=== PATIENT | female | born 1985 | race Asian ===

== ENCOUNTER 2021-05-27 15:53 | Emergency (ER) | payer OTHER ==
[2021-05-27 16:14] VITALS: BMI 28.5
[2021-05-27] MEDS ORDERED: CASIRIVIMAB/IMDEVIMAB 10 ML in SODIUM CHLORIDE 100 ML IVPB ONE (16:46)
[2021-05-27 18:54] VITALS: BP 127/86; PULSE 90
[2021-05-27 18:55] VITALS: TEMP 99.7
== END 2021-05-27 19:07 | disposition home or self-care (01) ==
LOC: JER 15:53
DX: U07.1 COVID-19 (principal)
CPT/HCPCS: 99284-25; Q0240

== ENCOUNTER 2023-08-26 04:14 | Day surgery (SDC) | payer BC ==
[2023-08-25 09:32] VITALS: BMI 30.2
[2023-08-26] MEDS ORDERED: ACETAMINOPHEN 325 MG TABLET (FP) PO PRN (11:44)
[2023-08-26] MEDS ORDERED: ONDANSETRON 4 MG/2 ML VIAL IVPUSH PRN ×2 (11:44→17:44)
[2023-08-26] MEDS ORDERED: oxyCODONE HCL 5 MG TABLET PO PRN ×2 (11:44→11:53)
[2023-08-26] MEDS ORDERED: LACTATED RINGERS SOLUTION 1,000 ML IV SCH (11:45)
[2023-08-26] MEDS ORDERED: IBUPROFEN 600 MG TABLET (FP) PO PRN (11:53)
[2023-08-26] MEDS ORDERED: IBUPROFEN 800 MG/8 ML IJ IVPB PRN (11:53)
[2023-08-26] MEDS ORDERED: MIDAZOLAM HCL 2 MG/2 ML SINGLE DOSE VIAL ONE (12:00)
[2023-08-26] MEDS ORDERED: ELECTROLYTE-148 SOLN 1,000 ML IV SCH (12:00)
[2023-08-26] MEDS ORDERED: SUCCINYLCHOLINE CHLORIDE 200 MG/10 ML SYRINGE ONE (12:06)
[2023-08-26] MEDS ORDERED: PROPOFOL 40 ML ONE (12:06)
[2023-08-26] MEDS ORDERED: DEXAMETHASONE SOD PHOSPHATE 4 MG/1 ML VIAL ONE (12:07)
[2023-08-26] MEDS ORDERED: KETOROLAC TROMETHAMINE 30 MG/1 ML VIAL ONE (12:07)
[2023-08-26 13:51] VITALS: RESP 18
[2023-08-26 14:58] VITALS: BP 108/60; PULSE 70; TEMP 98
== END 2023-08-26 14:35 | disposition home or self-care (01) ==
LOC: JASU-SURG 04:14
PROVIDERS: ATTEND Obstetrics & Gynecology
PROC: 0UB98ZZ Excision of Uterus, Via Natural or Artificial Opening Endoscopic (ICD-10-PCS; principal; 2023-08-26 12:00)
DX: N93.9 Abnormal uterine and vaginal bleeding, unspecified (principal); N84.0 Polyp of corpus uteri
CPT/HCPCS: 81025; 82962; 88305-TC; 94760